=== PATIENT | male | born 1965 | race Caucasian/White ===

== ENCOUNTER 2017-05-30 05:53 | Emergency (ER) | payer OTHER ==
[~2017-05-30] VITALS: Ht 175.3 cm; Wt 104.5 kg
[2017-05-30] MEDS ORDERED: OMEP20 PO (05:58)
[2017-05-30] MEDS ORDERED: CLON2 PO (05:58)
[2017-05-30 06:25] LABS: BASOPHILS % (AUTO) 0.3 % (0.0-2.0); EOSINOPHILS % (AUTO) 1.3 % (1.0-6.0); HEMATOCRIT 42.9 % (41-53); HEMOGLOBIN 14.8 g/dL (13.5-17.5); LYMPHOCYTES # (AUTO) 0.7 K/uL (1.0-4.8); LYMPHOCYTES % (AUTO) 7.2 % (22.0-44.0); MEAN CORPUSCULAR HEMOGLOBIN 31.4 pg (26.0-34.0); MEAN CORPUSCULAR HGB CONC 34.6 G/dL (31.0-37.0); MEAN CORPUSCULAR VOLUME 91 fL (80-100); MONOCYTES # (AUTO) 0.4 K/uL (0.1-1.0); MONOCYTES % (AUTO) 3.8 % (2.0-9.0); NEUTROPHILS # (AUTO) 9.1 K/uL (1.8-7.7); PLATELET COUNT (AUTO) 139 K/uL (150-450); RED BLOOD CELL COUNT(AUTO) 4.72 MIL/uL (4.50-5.90); RED CELL DISTRIBUTION WIDTH 12.8 % (11.5-14.5); WHITE BLOOD COUNT (AUTO) 10.4 K/uL (4.5-11.0)
[2017-05-30 06:34] LABS: NEUTROPHILS % (AUTO) 87.4 % (40.0-70.0)
[2017-05-30 06:35] LABS: APPEARANCE,URINE CLEAR (CLEAR); GLUCOSE, URINE (UA) NEGATIVE (NEGATIVE); KETONES,URINE TRACE mg/dL (NEGATIVE); LEUKOCYTE ESTERASE ,URINE NEGATIVE (NEGATIVE); OCCULT BLOOD,URINE NEGATIVE (NEGATIVE); PROTEIN,URINE NEGATIVE (NEGATIVE)
[2017-05-30 06:42] LABS: ANION GAP 8 mmol/L (8-16); CALCIUM, TOTAL 8.6 mg/dL (8.8-10.5); CARBON DIOXIDE 28 mmol/L (22-29); CHLORIDE 97 mmol/L (98-107); CREATININE 1.18 mg/dL (0.60-1.30); GLOMERULAR FILTR. RATE CALC > 60 mL/min (>60); POTASSIUM 3.7 mmol/L (3.5-5.1); SODIUM SERUM 133 mmol/L (136-145); UREA NITROGEN, BLOOD 9 mg/dL (7-18)
[2017-05-30 06:43] LABS: ADD UA MICROSCOPIC NO
[2017-05-30 06:48] LABS: ALANINE AMINOTRANSFERASE 56 U/L (12-78); ALBUMIN 3.9 g/dL (3.4-5.0); ASPARTATE AMINOTRANSFERASE 58 U/L (15-37); BILIRUBIN,TOTAL 0.7 mg/dL (0.1-1.0); TOTAL PROTEIN, SERUM 7.4 g/dL (6.4-8.2)
[2017-05-30] MEDS ORDERED: SODIUM CHLORIDE 0.9% 1,000 ML IV ONE ×2 (07:00→07:30)
[2017-05-30] MEDS ORDERED: LORazepam 1 MG TABLET PO ONE (07:00)
[2017-05-30] MEDS ORDERED: FAMOTIDINE 10 MG/ML 2 ML VIAL IVP ONE (07:15)
[2017-05-30] MEDS ORDERED: DONNATAL/LIDOCAINE/MAALOX 55 ML BOTTLE PO ONE (07:45)
[2017-05-30] MEDS ORDERED: SUCRALFATE 1 GM/10 ML SUSPENSION UDCUP PO ONE (07:45)
[2017-05-30] MEDS ORDERED: BARIUM SULFATE 0.1% SUSPENSION 450 ML BOTTLE PO ONE (08:00)
[2017-05-30] MEDS ORDERED: IOVERSOL 320 MG/ML 100 ML VIAL ONE (08:47)
[2017-05-30 10:05] VITALS: BP 128/82
== END 2017-05-30 10:41 | disposition home or self-care (01) ==
LOC: EMS 05:54
DX: K29.20 Alcoholic gastritis without bleeding (principal); N28.1 Cyst of kidney, acquired; D69.6 Thrombocytopenia, unspecified; F17.210 Nicotine dependence, cigarettes, uncomplicated; F11.10 Opioid abuse, uncomplicated
CPT/HCPCS: 36415; 74177; 80053; 81003; 83690; 85025; 96361; 96374; 99285; J3490; J7030; Q9967; Z7610 ×2

== ENCOUNTER 2017-06-07 14:53 | Inpatient (IN) | payer MEDICAID, OTHER ==
[~2017-06-07] VITALS: Ht 172.7 cm; Wt 72.3 kg
[~2017-06-07 14:53] MED LIST: CLON2 PO; OMEP20 PO
[2017-06-07] MEDS ORDERED: RANI150T7 PO (14:59)
[2017-06-07] MEDS ORDERED: FAMO20TA8 PO (14:59)
[2017-06-07 16:18] LABS: EOSINOPHILS % (AUTO) 4.3 % (1.0-6.0); HEMATOCRIT 44.1 % (41-53); LYMPHOCYTES # (AUTO) 1.8 K/uL (1.0-4.8); LYMPHOCYTES % (AUTO) 27.8 % (22.0-44.0); MEAN CORPUSCULAR HEMOGLOBIN 31.4 pg (26.0-34.0); MEAN CORPUSCULAR HGB CONC 33.9 G/dL (31.0-37.0); MEAN CORPUSCULAR VOLUME 92 fL (80-100); MONOCYTES # (AUTO) 0.4 K/uL (0.1-1.0); MONOCYTES % (AUTO) 6.8 % (2.0-9.0); NEUTROPHILS # (AUTO) 3.8 K/uL (1.8-7.7); NEUTROPHILS % (AUTO) 59.1 % (40.0-70.0); PLATELET COUNT (AUTO) 202 K/uL (150-450); RED BLOOD CELL COUNT(AUTO) 4.77 MIL/uL (4.50-5.90); RED CELL DISTRIBUTION WIDTH 14.4 % (11.5-14.5); WHITE BLOOD COUNT (AUTO) 6.4 K/uL (4.5-11.0)
[2017-06-07 16:26] LABS: ANION GAP 11 mmol/L (8-16); CARBON DIOXIDE 27 mmol/L (22-29); CHLORIDE 108 mmol/L (98-107); CREATININE 1.11 mg/dL (0.60-1.30); POTASSIUM 3.8 mmol/L (3.5-5.1); SODIUM SERUM 146 mmol/L (136-145); UREA NITROGEN, BLOOD 5 mg/dL (7-18)
[2017-06-07 16:27] LABS: CALCIUM, TOTAL 8.2 mg/dL (8.8-10.5); GLOMERULAR FILTR. RATE CALC > 60 mL/min (>60)
[2017-06-07 16:33] LABS: ALANINE AMINOTRANSFERASE 59 U/L (12-78); ALBUMIN 3.8 g/dL (3.4-5.0); ASPARTATE AMINOTRANSFERASE 33 U/L (15-37); BILIRUBIN,TOTAL 0.3 mg/dL (0.1-1.0)
[2017-06-07] MEDS ORDERED: LORazepam 2 MG TABLET PO PRN (17:00)
[2017-06-08] VITALS (11 sets, daily range): BP systolic 101–122; BP diastolic 60–78
[2017-06-08] MEDS ORDERED: INFLUENZA VIRUS VACCINE QVS 2017-18 (3YR+)/PF 60 MCG/0.5 ML SYRINGE IM ONE (00:30)
[2017-06-08] MEDS ORDERED: PNEUMOCOCCAL VACCINE POLYVALENT 0.5 ML VIAL [PPSV23] IM ONE (00:30)
[2017-06-08] MEDS ORDERED: LORazepam 2 MG TABLET PO PRN (07:00)
[2017-06-08 08:25] LABS: CHOL/HDL RATIO 2.7 (4.2-7.3)
[2017-06-08] MEDS: NICOTINE 14 MG/24 HOUR PATCH TD SCH (09:00)
[2017-06-08] MEDS: LORazepam 2 MG TABLET PO SCH ×4 (09:37→21:00)
[2017-06-08] MEDS ORDERED: GuaiFENesin/D-METHORPHAN [SUGAR-FREE] 200-20MG/10 ML SYRUP UDCUP PO PRN (10:45)
[2017-06-08] MEDS ORDERED: CYANOCOBALAMIN 1,000 MCG/ML VIAL IM ONE (10:45)
[2017-06-08] MEDS ORDERED: LOPERAMIDE HCL 2 MG CAPSULE PO PRN (10:45)
[2017-06-08] MEDS ORDERED: HydrOXYzine PAMOATE 50 MG CAPSULE PO PRN (10:45)
[2017-06-08] MEDS: THIAMINE HCL 100 MG TABLET PO SCH ×2 (11:11→16:37)
[2017-06-08] MEDS: FOLIC ACID 1 MG TABLET PO SCH (11:11)
[2017-06-08] MEDS: MULTIVITAMINS WITH MINERALS, THERAPEUTIC TABLET PO SCH (11:11)
[2017-06-08] MEDS ORDERED: ACETAMINOPHEN 325 MG TABLET PO PRN (16:45)
[2017-06-08] MEDS ORDERED: DOCUSATE SODIUM 100 MG CAPSULE PO PRN (16:45)
[2017-06-08] MEDS ORDERED: IBUPROFEN 400 MG TABLET PO PRN (16:45)
[2017-06-09 06:19] VITALS: BP 125/63
[2017-06-09 08:51] LABS: HEMOGLOBIN A1C 5.1 % (4.5-6.2)
[2017-06-09] MEDS: LORazepam 2 MG TABLET PO SCH ×4 (09:00→20:43)
[2017-06-09 09:05] VITALS: BP 102/61
[2017-06-09] MEDS: FOLIC ACID 1 MG TABLET PO SCH (09:12)
[2017-06-09] MEDS: MULTIVITAMINS WITH MINERALS, THERAPEUTIC TABLET PO SCH (09:12)
[2017-06-09] MEDS: ESCITALOPRAM OXALATE 10 MG TABLET PO SCH (09:12)
[2017-06-09] MEDS: THIAMINE HCL 100 MG TABLET PO SCH ×2 (09:13→16:51)
[2017-06-09] MEDS: NICOTINE 14 MG/24 HOUR PATCH TD SCH (09:13)
[2017-06-09 09:33] LABS: THYROID STIMULATING HORMONE 0.65 uIU/mL (0.36-3.74)
[2017-06-09 16:11] VITALS: BP 119/67
[2017-06-09] MEDS: HALOPERIDOL 5 MG TABLET PO PRN (17:44)
[2017-06-09 17:53] VITALS: BP 119/67
[2017-06-09] MEDS: ZOLPIDEM TARTRATE 10 MG TABLET PO PRN (20:43)
[2017-06-10 04:12] VITALS: BP 108/69
[2017-06-10] MEDS ORDERED: LORazepam 1 MG TABLET PO PRN (07:00)
[2017-06-10] MEDS: THIAMINE HCL 100 MG TABLET PO SCH ×2 (08:44→16:43)
[2017-06-10] MEDS: ESCITALOPRAM OXALATE 10 MG TABLET PO SCH (08:44)
[2017-06-10] MEDS: FOLIC ACID 1 MG TABLET PO SCH (08:44)
[2017-06-10] MEDS: MULTIVITAMINS WITH MINERALS, THERAPEUTIC TABLET PO SCH (08:44)
[2017-06-10] MEDS: LORazepam 1 MG TABLET PO SCH ×4 (08:44→20:24)
[2017-06-10 08:47] VITALS: BP 104/67
[2017-06-10] MEDS: NICOTINE 14 MG/24 HOUR PATCH TD SCH (09:00)
[2017-06-10 09:46] VITALS: BP 109/74
[2017-06-10] MEDS: HALOPERIDOL 5 MG TABLET PO PRN ×2 (14:03→20:27)
[2017-06-10 16:42] VITALS: BP 105/60
[2017-06-10 18:06] VITALS: BP 105/90
[2017-06-10] MEDS: ZOLPIDEM TARTRATE 10 MG TABLET PO PRN (21:35)
[2017-06-11 06:31] VITALS: BP 101/62
[2017-06-11] MEDS ORDERED: LORazepam 1 MG TABLET PO PRN (07:00)
[2017-06-11] MEDS: NICOTINE 14 MG/24 HOUR PATCH TD SCH (09:03)
[2017-06-11] MEDS: MULTIVITAMINS WITH MINERALS, THERAPEUTIC TABLET PO SCH (09:03)
[2017-06-11] MEDS: ESCITALOPRAM OXALATE 10 MG TABLET PO SCH (09:03)
[2017-06-11] MEDS: THIAMINE HCL 100 MG TABLET PO SCH (09:04)
[2017-06-11] MEDS: FOLIC ACID 1 MG TABLET PO SCH (09:04)
[2017-06-11 09:15] VITALS: BP 102/62
[2017-06-11] MEDS ORDERED: ESCI10TA PO (09:40)
== END 2017-06-11 11:35 | disposition home or self-care (01) | DRG 751 ==
LOC: EMS 14:54 → B2S 18:04
PROVIDERS: ADMIT Psychiatry & Neurology Psychiatry; ATTEND Psychiatry & Neurology Psychiatry
DX: F33.2 Major depressive disorder, recurrent severe without psychotic features (principal); F25.9 Schizoaffective disorder, unspecified; R45.851 Suicidal ideations; F11.90 Opioid use, unspecified, uncomplicated; F19.10 Other psychoactive substance abuse, uncomplicated; G89.4 Chronic pain syndrome; F10.229 Alcohol dependence with intoxication, unspecified; F17.210 Nicotine dependence, cigarettes, uncomplicated; K21.9 Gastro-esophageal reflux disease without esophagitis; Y90.8 Blood alcohol level of 240 mg/100 ml or more; M54.9 Dorsalgia, unspecified; Z28.21 Immunization not carried out because of patient refusal; Z79.899 Other long term (current) drug therapy; Z71.6 Tobacco abuse counseling; Z71.51 Drug abuse counseling and surveillance of drug abuser
CPT/HCPCS: 83036; 84443; 99285; G0480; J3420

== ENCOUNTER 2018-09-18 19:16 | Inpatient (IN) | payer MEDICAID, OTHER ==
[~2018-09-18] VITALS: Ht 172.7 cm; Wt 79.5 kg
[~2018-09-18 19:16] MED LIST changes: -CLON2 PO; +ESCI10TA PO; -OMEP20 PO
[2018-09-18] MEDS ORDERED: OXYC10 PO (19:57)
[2018-09-18] MEDS ORDERED: HALOPERIDOL LACTATE 5 MG/ML VIAL IM ONE ×2 (20:00→21:45)
[2018-09-18] MEDS ORDERED: DiphenhydrAMINE HCL 50 MG/ML VIAL IM ONE (20:00)
[2018-09-18] MEDS ORDERED: LORazepam 2 MG/ML VIAL IM ONE ×2 (20:00→21:45)
[2018-09-18 20:16] LABS: BASOPHILS % (AUTO) 0.3 % (0.0-2.0); EOSINOPHILS % (AUTO) 4.1 % (1.0-6.0); HEMATOCRIT 43.1 % (41-53); HEMOGLOBIN 15.2 g/dL (13.5-17.5); LYMPHOCYTES # (AUTO) 0.9 K/uL (1.0-4.8); LYMPHOCYTES % (AUTO) 8.9 % (22.0-44.0); MEAN CORPUSCULAR HEMOGLOBIN 31.8 pg (26.0-34.0); MEAN CORPUSCULAR HGB CONC 35.3 G/dL (31.0-37.0); MEAN CORPUSCULAR VOLUME 90 fL (80-100); MONOCYTES # (AUTO) 0.6 K/uL (0.1-1.0); MONOCYTES % (AUTO) 5.4 % (2.0-9.0); NEUTROPHILS # (AUTO) 8.5 K/uL (1.8-7.7); NEUTROPHILS % (AUTO) 81.3 % (40.0-70.0); PLATELET COUNT (AUTO) 222 K/uL (150-450); RED BLOOD CELL COUNT(AUTO) 4.77 MIL/uL (4.50-5.90); RED CELL DISTRIBUTION WIDTH 13.1 % (11.5-14.5)
[2018-09-18 20:28] LABS: ANION GAP 15 mmol/L (8-16); CALCIUM, TOTAL 8.9 mg/dL (8.8-10.5); CARBON DIOXIDE 23 mmol/L (22-29); CHLORIDE 102 mmol/L (98-107); CREATININE 1.04 mg/dL (0.60-1.30); GLOMERULAR FILTR. RATE CALC > 60 mL/min (>60); GLUCOSE,RANDOM 90 mg/dL (70-110); POTASSIUM 3.1 mmol/L (3.5-5.1); SODIUM SERUM 140 mmol/L (136-145); UREA NITROGEN, BLOOD 17 mg/dL (7-18)
[2018-09-18 20:34] LABS: ALANINE AMINOTRANSFERASE 26 U/L (12-78); ALBUMIN 3.2 g/dL (3.4-5.0); ALKALINE PHOSPHATASE 80 U/L (46-116); ASPARTATE AMINOTRANSFERASE 40 U/L (15-37); BILIRUBIN,TOTAL 0.4 mg/dL (0.1-1.0); TOTAL PROTEIN, SERUM 6.5 g/dL (6.4-8.2)
[2018-09-18] MEDS ORDERED: HALOPERIDOL 5 MG TABLET PO PRN (22:00)
[2018-09-18] MEDS ORDERED: POTASSIUM CHLORIDE 20 MEQ ER TABLET PO ONE (22:15)
[2018-09-19 05:20] LABS: HEMOGLOBIN A1C 5.1 % (4.5-6.2)
[2018-09-19 05:55] LABS: CHOL/HDL RATIO 3.3 (4.2-7.3); FREE T4 (FREE THYROXINE) 0.89 ng/dL (0.76-1.46); THYROID STIMULATING HORMONE 0.19 uIU/mL (0.36-3.74)
[2018-09-19] MEDS ORDERED: HYDROCODONE/ACETAMINOPHEN 5-325 MG TABLET PO ONE (16:30)
[2018-09-19 18:06] LABS: AMPHET/METH SCREEN,URINE NEGATIVE (NEGATIVE); BARBITURATE SCREEN, URINE NEGATIVE (NEGATIVE); BENZODIAZEPINES SCREEN,URINE POSITIVE (NEGATIVE); CANNABINOID SCREEN,URINE POSITIVE (NEGATIVE); COCAINE SCREEN,URINE NEGATIVE (NEGATIVE); METHADONE SCREEN, URINE NEGATIVE (NEGATIVE); OPIATE SCREEN,URINE POSITIVE (NEGATIVE)
[2018-09-19 18:07] LABS: PHENCYCLIDINE SCREEN,URINE NEGATIVE (NEGATIVE)
[2018-09-19 18:12] LABS: APPEARANCE,URINE CLEAR (CLEAR); BILIRUBIN,URINE NEGATIVE (NEGATIVE); GLUCOSE, URINE (UA) NEGATIVE (NEGATIVE); KETONES,URINE >=80 mg/dL (NEGATIVE); LEUKOCYTE ESTERASE ,URINE NEGATIVE (NEGATIVE); NITRATE,URINE NEGATIVE (NEGATIVE); OCCULT BLOOD,URINE NEGATIVE (NEGATIVE); PROTEIN,URINE TRACE (NEGATIVE)
[2018-09-19] MEDS: LORazepam 2 MG TABLET PO PRN (22:20)
[2018-09-19] MEDS: ZOLPIDEM TARTRATE 10 MG TABLET PO PRN (22:21)
[2018-09-20] VITALS (10 sets, daily range): BP systolic 98–128; BP diastolic 57–98
[2018-09-20] MEDS ORDERED: -PHARMACY VACCINE NOTE- MISC ONE (03:00)
[2018-09-20] MEDS ORDERED: PNEUMOCOCCAL VACCINE POLYVALENT 0.5 ML VIAL [PPSV23] IM ONE (03:00)
[2018-09-20] MEDS ORDERED: LOPERAMIDE HCL 2 MG CAPSULE PO PRN (06:45)
[2018-09-20] MEDS ORDERED: MAGNESIUM HYDROXIDE SUSPENSION 30 ML UDCUP PO PRN (06:45)
[2018-09-20] MEDS ORDERED: ALBUTEROL SULFATE HFA 90 MCG/PUFF 8 GM INHALER IH PRN (06:45)
[2018-09-20] MEDS ORDERED: MAG HYDROX/AL HYDROX/SIMETH ES 30 ML SUSPENSION UDCUP PO PRN (06:45)
[2018-09-20] MEDS ORDERED: PETROLATUM,WHITE 71 GM JELLY TP PRN (06:45)
[2018-09-20] MEDS ORDERED: DOCUSATE SODIUM 100 MG CAPSULE PO PRN (06:45)
[2018-09-20] MEDS ORDERED: CloNIDine HCL 0.1 MG TABLET PO PRN (06:45)
[2018-09-20] MEDS ORDERED: ONDANSETRON HCL 4 MG TABLET PO PRN (06:45)
[2018-09-20] MEDS ORDERED: GuaiFENesin/D-METHORPHAN [SUGAR-FREE] 200-20MG/10 ML SYRUP UDCUP PO PRN (06:45)
[2018-09-20] MEDS: LORazepam 2 MG TABLET PO PRN (07:51)
[2018-09-20] MEDS: IBUPROFEN 400 MG TABLET PO PRN (14:54)
[2018-09-20] MEDS ORDERED: OxyCODONE HCL 10 MG ER TABLET PO PRN (18:00)
[2018-09-20] MEDS: OxyCODONE HCL 10 MG IR TABLET PO PRN (20:31)
[2018-09-20] MEDS: ZOLPIDEM TARTRATE 10 MG TABLET PO PRN (20:31)
[2018-09-20] MEDS ORDERED: LORazepam 2 MG TABLET PO PRN (21:30)
[2018-09-21] VITALS (8 sets, daily range): BP systolic 104–121; BP diastolic 54–79
[2018-09-21] MEDS: IBUPROFEN 400 MG TABLET PO PRN ×2 (01:59→13:04)
[2018-09-21 08:15] LABS: BASOPHILS % (AUTO) 0.9 % (0.0-2.0); EOSINOPHILS % (AUTO) 9.9 % (1.0-6.0); HEMATOCRIT 45.8 % (41-53); HEMOGLOBIN 15.9 g/dL (13.5-17.5); LYMPHOCYTES # (AUTO) 1.2 K/uL (1.0-4.8); LYMPHOCYTES % (AUTO) 14.8 % (22.0-44.0); MEAN CORPUSCULAR HEMOGLOBIN 31.2 pg (26.0-34.0); MEAN CORPUSCULAR HGB CONC 34.6 G/dL (31.0-37.0); MEAN CORPUSCULAR VOLUME 90 fL (80-100); MONOCYTES # (AUTO) 0.5 K/uL (0.1-1.0); MONOCYTES % (AUTO) 6.7 % (2.0-9.0); NEUTROPHILS # (AUTO) 5.4 K/uL (1.8-7.7); NEUTROPHILS % (AUTO) 67.7 % (40.0-70.0); PLATELET COUNT (AUTO) 253 K/uL (150-450); RED BLOOD CELL COUNT(AUTO) 5.08 MIL/uL (4.50-5.90)
[2018-09-21] MEDS: ARIPiprazole 15 MG TABLET PO SCH (08:16)
[2018-09-21] MEDS: LORazepam 2 MG TABLET PO SCH ×5 (08:19→21:35)
[2018-09-21] MEDS: ESCITALOPRAM OXALATE 20 MG TABLET PO SCH (08:19)
[2018-09-21] MEDS: OxyCODONE HCL 10 MG IR TABLET PO PRN ×2 (08:19→20:16)
[2018-09-21 08:37] LABS: ALANINE AMINOTRANSFERASE 46 U/L (12-78); ALBUMIN 3.4 g/dL (3.4-5.0); ALKALINE PHOSPHATASE 74 U/L (46-116); ANION GAP 8 mmol/L (8-16); ASPARTATE AMINOTRANSFERASE 100 U/L (15-37); BILIRUBIN,TOTAL 0.5 mg/dL (0.1-1.0); CALCIUM, TOTAL 9.2 mg/dL (8.8-10.5); CARBON DIOXIDE 28 mmol/L (22-29); CHLORIDE 102 mmol/L (98-107); CHOL/HDL RATIO 3.9 (4.2-7.3); CHOLESTEROL 154 mg/dL (131-200); CREATININE 0.83 mg/dL (0.60-1.30); GLOMERULAR FILTR. RATE CALC > 60 mL/min (>60); GLUCOSE,RANDOM 92 mg/dL (70-110); HDL CHOLESTEROL 40 mg/dL (40-60); LDL CHOL (CALC.) 91 mg/dL (0-130); POTASSIUM 4.1 mmol/L (3.5-5.1); SODIUM SERUM 138 mmol/L (136-145); THYROID STIMULATING HORMONE 0.52 uIU/mL (0.36-3.74); TOTAL PROTEIN, SERUM 7.3 g/dL (6.4-8.2); TRIGLYCERIDES 115 mg/dL (15-150); UREA NITROGEN, BLOOD 16 mg/dL (7-18)
[2018-09-22] VITALS (8 sets, daily range): BP systolic 113–136; BP diastolic 54–77
[2018-09-22] MEDS: IBUPROFEN 400 MG TABLET PO PRN ×2 (03:42→14:29)
[2018-09-22] MEDS: LORazepam 2 MG TABLET PO PRN (03:43)
[2018-09-22] MEDS: ACETAMINOPHEN 325 MG TABLET PO PRN ×2 (05:46→10:55)
[2018-09-22] MEDS: ARIPiprazole 15 MG TABLET PO SCH (08:56)
[2018-09-22] MEDS: MULTIVITAMINS WITH MINERALS, THERAPEUTIC TABLET PO SCH (08:56)
[2018-09-22] MEDS: LORazepam 2 MG TABLET PO SCH ×4 (08:56→20:51)
[2018-09-22] MEDS: FOLIC ACID 1 MG TABLET PO SCH (08:57)
[2018-09-22] MEDS: OxyCODONE HCL 10 MG IR TABLET PO PRN ×2 (08:57→20:50)
[2018-09-22] MEDS: THIAMINE HCL 100 MG TABLET PO SCH (08:57)
[2018-09-22] MEDS: ESCITALOPRAM OXALATE 20 MG TABLET PO SCH (08:57)
[2018-09-22] MEDS ORDERED: ESCI20TA PO (11:54)
[2018-09-22] MEDS ORDERED: ARIP15TA2 PO (11:54)
[2018-09-23] MEDS: IBUPROFEN 400 MG TABLET PO PRN (01:36)
[2018-09-23] MEDS: ZOLPIDEM TARTRATE 10 MG TABLET PO PRN (01:36)
[2018-09-23 01:37] VITALS: BP 143/74
[2018-09-23] MEDS: LORazepam 2 MG TABLET PO PRN (03:49)
[2018-09-23] MEDS ORDERED: LORazepam 1 MG TABLET PO PRN (07:00)
[2018-09-23 08:54] VITALS: BP_SYST 113
[2018-09-23] MEDS: THIAMINE HCL 100 MG TABLET PO SCH (08:54)
[2018-09-23] MEDS: ARIPiprazole 15 MG TABLET PO SCH (08:54)
[2018-09-23] MEDS: ESCITALOPRAM OXALATE 20 MG TABLET PO SCH (08:54)
[2018-09-23] MEDS: OxyCODONE HCL 10 MG IR TABLET PO PRN (08:54)
[2018-09-23] MEDS: FOLIC ACID 1 MG TABLET PO SCH (08:54)
[2018-09-23] MEDS: MULTIVITAMINS WITH MINERALS, THERAPEUTIC TABLET PO SCH (08:55)
[2018-09-23] MEDS ORDERED: LORazepam 1 MG TABLET PO SCH (09:00)
[2018-09-24] MEDS ORDERED: LORazepam 1 MG TABLET PO PRN (07:00)
== END 2018-09-23 12:00 | disposition home or self-care (01) | DRG 750 ==
LOC: EMS 19:18 → AHU 09-19 23:45 → 3EI 09-20 13:25
PROVIDERS: ADMIT Psychiatry & Neurology Psychiatry; ATTEND Psychiatry & Neurology Psychiatry
DX: F20.0 Paranoid schizophrenia (principal); Z78.1 Physical restraint status; F10.10 Alcohol abuse, uncomplicated; F11.90 Opioid use, unspecified, uncomplicated; K21.9 Gastro-esophageal reflux disease without esophagitis; F17.200 Nicotine dependence, unspecified, uncomplicated; G89.4 Chronic pain syndrome; Z71.6 Tobacco abuse counseling
CPT/HCPCS: 83036; 84439; 84443; 96372; G0480; J1200; J1630; J2060

== ENCOUNTER 2018-10-29 05:09 | Emergency (ER) | payer MEDICAID, OTHER ==
[~2018-10-29] VITALS: Ht 172.7 cm; Wt 81.8 kg
[~2018-10-29 05:09] MED LIST changes: +ARIP15TA2 PO; -ESCI10TA PO; +ESCI20TA PO
[2018-10-29 06:38] LABS: EOSINOPHILS % (AUTO) 10.2 % (1.0-6.0); HEMATOCRIT 46.7 % (41-53); HEMOGLOBIN 16.2 g/dL (13.5-17.5); LYMPHOCYTES # (AUTO) 1.5 K/uL (1.0-4.8); LYMPHOCYTES % (AUTO) 19.6 % (22.0-44.0); MEAN CORPUSCULAR HEMOGLOBIN 30.9 pg (26.0-34.0); MEAN CORPUSCULAR HGB CONC 34.6 G/dL (31.0-37.0); MEAN CORPUSCULAR VOLUME 89 fL (80-100); MONOCYTES # (AUTO) 0.7 K/uL (0.1-1.0); MONOCYTES % (AUTO) 9.6 % (2.0-9.0); NEUTROPHILS # (AUTO) 4.6 K/uL (1.8-7.7); NEUTROPHILS % (AUTO) 59.6 % (40.0-70.0); PLATELET COUNT (AUTO) 253 K/uL (150-450); RED BLOOD CELL COUNT(AUTO) 5.23 MIL/uL (4.50-5.90)
[2018-10-29 06:47] LABS: ANION GAP 6 mmol/L (8-16); CALCIUM, TOTAL 9.4 mg/dL (8.8-10.5); CARBON DIOXIDE 34 mmol/L (22-29); CHLORIDE 104 mmol/L (98-107); GLOMERULAR FILTR. RATE CALC > 60 mL/min (>60); GLUCOSE,RANDOM 72 mg/dL (70-110); POTASSIUM 4.4 mmol/L (3.5-5.1); SODIUM SERUM 144 mmol/L (136-145); UREA NITROGEN, BLOOD 16 mg/dL (7-18)
[2018-10-29 06:53] LABS: ALANINE AMINOTRANSFERASE 43 U/L (12-78); ALBUMIN 3.9 g/dL (3.4-5.0); ALKALINE PHOSPHATASE 92 U/L (46-116); ASPARTATE AMINOTRANSFERASE 58 U/L (15-37); BILIRUBIN,TOTAL 0.6 mg/dL (0.1-1.0); TOTAL PROTEIN, SERUM 7.1 g/dL (6.4-8.2)
[2018-10-29 09:35] LABS: AMPHET/METH SCREEN,URINE NEGATIVE (NEGATIVE); BARBITURATE SCREEN, URINE NEGATIVE (NEGATIVE); BENZODIAZEPINES SCREEN,URINE POSITIVE (NEGATIVE); CANNABINOID SCREEN,URINE POSITIVE (NEGATIVE); COCAINE SCREEN,URINE NEGATIVE (NEGATIVE); METHADONE SCREEN, URINE NEGATIVE (NEGATIVE); OPIATE SCREEN,URINE NEGATIVE (NEGATIVE)
[2018-10-29 09:36] LABS: PHENCYCLIDINE SCREEN,URINE NEGATIVE (NEGATIVE)
[2018-10-29 13:09] VITALS: BP 126/72
== END 2018-10-29 13:10 | disposition home or self-care (01) ==
LOC: EMS 05:11
DX: F20.9 Schizophrenia, unspecified (principal); F32.9 Major depressive disorder, single episode, unspecified; G89.29 Other chronic pain; F17.210 Nicotine dependence, cigarettes, uncomplicated; F11.90 Opioid use, unspecified, uncomplicated
CPT/HCPCS: 36415; 80053; 80307; 85025; 99285; G0480

== ENCOUNTER 2019-03-03 00:43 | Emergency (ER) | payer OTHER ==
[~2019-03-03] VITALS: Ht 172.7 cm; Wt 81.8 kg
[2019-03-03 01:00] VITALS: BP 153/88
[2019-03-03] MEDS ORDERED: PANT40TA25 PO (01:03)
== END 2019-03-03 02:00 | disposition left against medical advice (07) ==
LOC: EMS 00:46
DX: R10.13 Epigastric pain (principal); Z53.21 Procedure and treatment not carried out due to patient leaving prior to being seen by health care provider